=== PATIENT | female | born 1975 | race American Indian/Alaskan Native ===

== ENCOUNTER 2019-12-11 13:02 | Emergency (ER) | payer MEDICAID ==
[2019-12-11 15:59] VITALS: BP 116/85; PULSE 116
--- NOTE | 2019-12-12 10:35 | EDM.PDOC ---
ED HPI GENERAL MEDICAL PROBLEM - General Chief Complaint: Respiratory Problem Stated Complaint: BAD COUGH/SINUS PRESSURE/CAN'T SMELL OR TASTE Time Seen by Provider: 12/11/19 14:30 Source of Information: Reports: Patient, RN, RN Notes Reviewed - History of Present Illness INITIAL COMMENTS - FREE TEXT/NARRATIVE: Presents to ER with complaint of sinus congestion for 5 days. Admits to loss of smell and taste x3 days ago. Admits to fever and chills from time to time, denies nausea, vomiting, diarrhea. No known Covid exposure, but states she wants to be tested. Admits to a loose cough frequently. Onset: Gradual - Related Data Allergies Allergy/AdvReac Type Severity Reaction Status Date / Time No Known Allergies Allergy Verified 12/11/19 13:35 Home Meds: Home Meds . [No Known Home Meds] 10/21/16 [History] Past Medical History HEENT History: Reports: None Cardiovascular History: Reports: None Respiratory History: Reports: None Gastrointestinal History: Reports: None Genitourinary History: Reports: Renal Calculus [employer] History: Reports: Musculoskeletal History: Reports: None Neurological History: Reports: None Psychiatric History: Reports: None Endocrine/Metabolic History: Reports: None Hematologic History: Reports: None Dermatologic History: Reports: None - Infectious Disease History Infectious Disease History: Reports: Chicken Pox Social & Family History - Family History Family Medical History: Noncontributory - Tobacco Use Tobacco Use Status *Q: Never Tobacco User Second Hand Smoke Exposure: Yes ED ROS GENERAL - Review of Systems Review Of Systems: Comprehensive ROS is negative, except as noted in HPI. ED EXAM, GENERAL - Physical Exam Exam: See Below Exam Limited By: No Limitations General Appearance: Alert, WD/WN, No Apparent Distress Eye Exam: Bilateral Eye: EOMI, Normal Inspection Ears: Normal External Exam, Hearing Grossly Normal Nose: Normal Inspection, Nasal Drainage, Other (sinus/nasal congestion) Throat/Mouth: Normal Inspection, Normal Lips, Normal Teeth, Normal Gums, Normal Oropharynx, Normal Voice, No Airway Compromise Head: Atraumatic, Normocephalic Neck: Normal Inspection, Supple, Non-Tender, Full Range of Motion Respiratory/Chest: No Respiratory Distress, Lungs Clear, Normal Breath Sounds, No Accessory Muscle Use, Chest Non-Tender Cardiovascular: Normal Peripheral Pulses, Regular Rate, Rhythm, No Edema, No Gallop, No JVD, No Murmur, No Rub Peripheral Pulses: 2+: Radial (L), Radial (R) GI/Abdominal: Normal Bowel Sounds, Soft, Non-Tender (Female) Exam: Deferred Rectal (Female) Exam: Deferred Back Exam: Normal Inspection, Full Range of Motion, NT Extremities: Normal Inspection, Normal Range of Motion, Non-Tender, Normal Capillary Refill, No Pedal Edema Neurological: Alert, Oriented, CN II-XII Intact, Normal Cognition, Normal Gait, Normal Reflexes, No Motor/Sensory Deficits Psychiatric: Normal Affect, Normal Mood Skin Exam: Warm, Dry, Intact, Normal Color, No Rash Lymphatic: No Adenopathy Course - Vital Signs Last Recorded V/S: Last Vital Signs Temp 99.7 F 12/11/19 13:32 Pulse 116 H 12/11/19 13:32 Resp 16 12/11/19 13:32 BP 116/85 12/11/19 13:32 Pulse Ox 100 12/11/19 13:32 Departure - Departure Time of Disposition: 15:28 Disposition: Left Without Being Seen 07 Condition: Fair Clinical Impression: Viral respiratory illness - Discharge Information *PRESCRIPTION DRUG MONITORING PROGRAM REVIEWED*: No *COPY OF PRESCRIPTION DRUG MONITORING REPORT IN PATIENT KASIA: No Instructions: Viral Respiratory Infection, [id number] Referrals: PCP,None [Primary Care Provider] - Forms: ED Department Discharge Additional Instructions: You will be notified of your COVID results. May use over the counter cough syrups, decongestants. Sepsis Event Note (ED) - Evaluation Sepsis Screening Result: No Definite Risk
== END 2019-12-11 15:28 | disposition left against medical advice (07) ==
LOC: DL.ED 13:02
DX: J06.9 Acute upper respiratory infection, unspecified (principal)
CPT/HCPCS: 99283

== ENCOUNTER 2021-12-30 04:33 | Emergency (ER) | payer MEDICAID ==
[2021-12-30 04:20] VITALS: BP 141/91; PULSE 116
[2021-12-30 04:42] LABS: ANION GAP 15.5 mEq/L (7-13)
[2021-12-30 05:14] LABS: AMPHETAMINES,URINE NEGATIVE (NEGATIVE); BARBITURATES,URINE NEGATIVE (NEGATIVE); BENZODIAZEPINE,URINE NEGATIVE (NEGATIVE); MDMA (ECSTASY), URINE NEGATIVE (NEGATIVE); METHADONE,URINE NEGATIVE (NEGATIVE); METHAMPHETAMINES,URINE NEGATIVE (NEGATIVE); OPIATES,URINE NEGATIVE (NEGATIVE); OXYCODONE,URINE NEGATIVE (NEGATIVE); PHENCYCLIDINE,URINE NEGATIVE (NEGATIVE); TCA,URINE NEGATIVE (NEGATIVE)
== END 2021-12-30 05:21 | disposition home or self-care (01) ==
LOC: DL.ED 04:33
DX: R07.9 Chest pain, unspecified (principal)
CPT/HCPCS: 36415; 71045; 80053; 80305-QW; 80307; 81001; 83605; 84484; 85025; 93005; 99285

== ENCOUNTER 2022-09-28 07:03 | Day surgery (SDC) | payer MEDICAID ==
[~2022-09-28 07:03] MED LIST: Dextrose 5%-0.45% NaCl 1,000 ML IV SCH
[2022-09-28] MEDS ORDERED: Midazolam 1 MG/ML 2 ML SDV IV ONE ×3 (07:04→08:31)
[2022-09-28] MEDS ORDERED: fentaNYL 100 MCG/2 ML SDV IV ONE ×3 (07:04→08:30)
[2022-09-28] MEDS ORDERED: fentaNYL 100 MCG/2 ML SDV ONE (07:45)
[2022-09-28] MEDS ORDERED: Midazolam 1 MG/ML 2 ML SDV ONE (07:45)
[2022-09-28 10:24] VITALS: BP 132/77; PULSE 91
[2022-09-30] MEDS ORDERED: Dextrose 5%-0.45% NaCl 1,000 ML IV SCH (06:00)
== END 2022-09-28 10:27 | disposition home or self-care (01) ==
LOC: DL.ENDO 07:03
PROVIDERS: ATTEND Internal Medicine Gastroenterology
DX: D50.9 Iron deficiency anemia, unspecified (principal); K29.50 Unspecified chronic gastritis without bleeding; K31.89 Other diseases of stomach and duodenum; B96.81 Helicobacter pylori [H. pylori] as the cause of diseases classified elsewhere; K44.9 Diaphragmatic hernia without obstruction or gangrene; E66.09 Other obesity due to excess calories; L70.9 Acne, unspecified; L20.9 Atopic dermatitis, unspecified; I73.00 Raynaud's syndrome without gangrene; Z98.890 Other specified postprocedural states; Z86.69 Personal history of other diseases of the nervous system and sense organs; Z68.31 Body mass index [BMI] 31.0-31.9, adult
CPT/HCPCS: 43239; 81025; 87077; J2250; J3010; J7042

== ENCOUNTER 2024-12-04 15:21 | Emergency (ER) | payer MEDICAID ==
[2024-12-04 16:00] LABS: BASOPHILS PERCENT AUTO 0.1 % (0.0-1.0); EOSINOPHILS PERCENT AUTO 0.2 % (1.0-3.0); LYMPHOCYTES PERCENT AUTO 14.1 % (20.5-50.1); MONOCYTES PERCENT AUTO 10.2 % (2-8); NEUTROPHILS PERCENT AUTO 75.4 % (42.2-75.2); PLATELET COUNT,PLT 85 10^3/uL (150-450); RED BLOOD CELL COUNT 3.05 10^6/uL (4.2-5.4); WHITE BLOOD CELL COUNT,WBC 10.1 10^3/uL (5.0-10.0)
[2024-12-04 16:28] LABS: ALANINE AMINOTRANSFERASE,ALT 16.0 U/L (14-59); ASPARTATE AMNIOTRANSFERASE,AST 87.0 U/L (15-37); BILIRUBIN TOTAL 11.2 mg/dL (0.2-1.0); BLOOD UREA NITROGEN,BUN 4.0 mg/dL (7-18); CARBON DIOXIDE,CO2 36.0 mmol/L (21-32); CHLORIDE,CL 91.0 mmol/L (98-107); CREATININE 0.7 mg/dL (0.55-1.02); EST CRCL DRUG DOSING (CG) 95.58 mL/min; GLUCOSE RANDOM 123.0 mg/dL (70-99); PROTEIN TOTAL,TP 6.7 g/dL (6.4-8.2); SODIUM,NA 136.0 mmol/L (136-145)
[2024-12-04 16:29] LABS: A/G RATIO 0.4; ESTIMATED GFR 107.0 mL/min (>=60)
[2024-12-04 16:30] LABS: POTASSIUM,K 2.2 mmol/L (3.5-5.1)
[2024-12-04] MEDS: D5 1/2 NS w/ 40 mEq/L KCl 1,000 ML IV SCH (16:43)
[2024-12-04] MEDS: Potassium Chloride 10 MEQ Tab.ER PO ONE (16:43)
[2024-12-04 16:44] LABS: INR 1.5 (0.9-1.2)
[2024-12-04] MEDS: Iopamidol 612 MG/ML 100 ML Bottle IVPUSH ONE (16:50)
[2024-12-04] MEDS: Ondansetron 4 MG/2 ML SDV IVPUSH ONE (16:58)
[2024-12-04 17:32] LABS: APPEARANCE,URINE SLIGHTLY CLOUDY (CLEAR); GLUCOSE,URINE 100 (NEGATIVE); OCCULT BLOOD,URINE TRACE-INTACT (NEGATIVE)
[2024-12-04 17:37] LABS: AMPHETAMINES,URINE NEGATIVE (NEGATIVE); BARBITURATES,URINE NEGATIVE (NEGATIVE); MDMA (ECSTASY), URINE NEGATIVE (NEGATIVE); METHAMPHETAMINES,URINE NEGATIVE (NEGATIVE); OPIATES,URINE NEGATIVE (NEGATIVE); OXYCODONE,URINE NEGATIVE (NEGATIVE); PHENCYCLIDINE,URINE NEGATIVE (NEGATIVE); TCA,URINE NEGATIVE (NEGATIVE)
[2024-12-04 17:41] LABS: EPITHELIAL CELLS,URINE FEW /HPF (NOT SEEN)
[2024-12-04 18:31] VITALS: BP 106/62; PULSE 102
== END 2024-12-04 19:11 ==
LOC: DL.ED 15:21
DX: K72.90 Hepatic failure, unspecified without coma (principal); E87.6 Hypokalemia; K21.9 Gastro-esophageal reflux disease without esophagitis; Z90.49 Acquired absence of other specified parts of digestive tract; Z79.899 Other long term (current) drug therapy
CPT/HCPCS: 36415; 74177; 80053; 80305-QW; 81001; 83735; 85025; 85610; 87086; 87088; 87186; 96365; 96366; 96375; 99285; 99285-25; A9270-GY; J2405; J3480; J7030; Q9967

== ENCOUNTER 2024-12-23 11:24 | Emergency (ER) | payer MEDICAID ==
[2024-12-23 13:30] VITALS: BP 115/71; PULSE 81
== END 2024-12-23 11:43 | disposition home or self-care (01) ==
LOC: DL.ED 11:24
DX: R17 Unspecified jaundice (principal); Z13.9 Encounter for screening, unspecified; Z79.899 Other long term (current) drug therapy
CPT/HCPCS: 99282; 99284

== ENCOUNTER 2025-01-04 21:02 | Emergency (ER) | payer MEDICAID ==
[2025-01-04] MEDS ORDERED: Octreotide 100 MCG in Sodium Chloride 0.9% 99 ML IV SCH (21:15)
[2025-01-04] MEDS: Octreotide 100 MCG/ML SDV IVPUSH ONE (21:38)
[2025-01-04 21:50] LABS: POTASSIUM,K 4.0 mmol/L (3.5-5.1)
[2025-01-04 22:01] LABS: PLATELET COUNT,PLT 200 10^3/uL (150-450); RED BLOOD CELL COUNT 1.34 10^6/uL (4.2-5.4); WHITE BLOOD CELL COUNT,WBC 31.7 10^3/uL (5.0-10.0)
[2025-01-04] MEDS: Octreotide 100 MCG in Sodium Chloride 0.9% 99 ML IV SCH (22:01)
[2025-01-04 22:03] LABS: BASOPHILS PERCENT AUTO 0.0 % (0.0-1.0); EOSINOPHILS PERCENT AUTO 0.1 % (1.0-3.0); LYMPHOCYTES PERCENT AUTO 9.3 % (20.5-50.1); MONOCYTES PERCENT AUTO 5.5 % (2-8); NEUTROPHILS PERCENT AUTO 85.1 % (42.2-75.2)
[2025-01-04 22:15] LABS: B-TYPE NATRIURETIC PEPTIDE,BNP 459 pg/ml (0-100)
[2025-01-04 22:22] LABS: A/G RATIO 0.29; ALANINE AMINOTRANSFERASE,ALT 44 U/L (14-59); ASPARTATE AMNIOTRANSFERASE,AST 203 U/L (15-37); BILIRUBIN TOTAL 10.3 mg/dL (0.2-1.0); BLOOD UREA NITROGEN,BUN 80 mg/dL (7-18); CARBON DIOXIDE,CO2 27 mmol/L (21-32); CHLORIDE,CL 88 mmol/L (98-107); CREATININE 3.38 mg/dL (0.55-1.02); GLUCOSE RANDOM 113 mg/dL (70-99); PROTEIN TOTAL,TP 4.4 g/dL (6.4-8.2); SODIUM,NA 132 mmol/L (136-145)
[2025-01-04 22:24] LABS: ESTIMATED GFR 16 mL/min (>=60)
[2025-01-04 22:25] LABS: ETHANOL BLOOD MEDICAL < 3 mg/dL (0); LACTIC ACID 11.1 mmol/L (0.4-2.0)
[2025-01-04] MEDS: Ondansetron 4 MG/2 ML SDV IVPUSH ONE (22:26)
[2025-01-04] MEDS: Norepinephrine Bit/D5W Premix 4 MG/250 ML BAG IV SCH (22:28)
[2025-01-04 22:29] LABS: INR 1.7 (0.9-1.2); PTT,PARTIAL THROMBOPLSTIN TIME 31.4 SEC (22.0-34.0)
[2025-01-04 22:44] LABS: APPEARANCE,URINE SLIGHTLY CLOUDY (CLEAR); GLUCOSE,URINE NEGATIVE (NEGATIVE); OCCULT BLOOD,URINE LARGE (NEGATIVE)
[2025-01-04 22:48] LABS: AMPHETAMINES,URINE NEGATIVE (NEGATIVE); BARBITURATES,URINE NEGATIVE (NEGATIVE); MDMA (ECSTASY), URINE NEGATIVE (NEGATIVE); METHAMPHETAMINES,URINE NEGATIVE (NEGATIVE); OPIATES,URINE NEGATIVE (NEGATIVE); OXYCODONE,URINE NEGATIVE (NEGATIVE); PHENCYCLIDINE,URINE NEGATIVE (NEGATIVE); TCA,URINE NEGATIVE (NEGATIVE)
[2025-01-04 23:31] LABS: EPITHELIAL CELLS,URINE FEW /HPF (NOT SEEN)
[2025-01-04] MEDS ORDERED: Octreotide 100 MCG/ML SDV ONE (23:42)
[2025-01-04] MEDS: Midazolam 5 MG/ML 10 ML MDV IV ONE (23:56)
[2025-01-05 00:01] VITALS: BP 99/70; PULSE 91
[2025-01-05 00:03] LABS: BAND PERCENT MAN 3 %; LYMPHOCYTES PERCENT MAN 8 % (20-50); MONOCYTES PERCENT MAN 3 % (2-8); SEG NEUTROPHILS PERCENT MAN 86 % (42-75)
[2025-01-05] MEDS ORDERED: Benzocaine 20% Topical Spray UD MUCMEM ONE (01:37)
== END 2025-01-05 00:17 ==
LOC: DL.ED 21:02
DX: A41.9 Sepsis, unspecified organism (principal); R65.21 Severe sepsis with septic shock; N17.9 Acute kidney failure, unspecified; J69.0 Pneumonitis due to inhalation of food and vomit; K92.1 Melena; K76.82 Hepatic encephalopathy; E87.20 Acidosis, unspecified; Z79.899 Other long term (current) drug therapy
CPT/HCPCS: 36415; 36430; 43752; 51702; 71045; 80053; 80305; 80307; 81001; 82140; 82272; 82947; 83605; 83690; 83735; 83880; 84484; 85025; 85610; 85730; 86140; 86850; 86900; 86901; 86920; 86922; 87040; 87045; 87046; 87077; 87086; 87088; 87186; 87899; 93005; 93010; 96361; 96365; 96366; 96368; 96375; 96376; 99285; 99291; J2250; J2354; J2405; J2470; J2543; J3010; J7030; P9016; P9017